=== PATIENT | female | born 1975 | race African-American/Black ===

== ENCOUNTER 2020-12-04 11:00 | Inpatient (IN) ==
[2020-12-04] MEDS ORDERED: Naloxone 0.4 MG/ML INJ IVP PRN (22:28)
[2020-12-04] MEDS ORDERED: *HR* Promethazine 25 MG/ML VIAL IM PRN (22:28)
[2020-12-04] MEDS ORDERED: *HR* LORazepam 2 MG/ML VIAL IVP PRN (22:37)
[2020-12-04] MEDS ORDERED: Azithromycin 500 MG in 0.9 % Sodium Chloride 250 ML IVPB SCH (23:00)
[2020-12-04] MEDS: Cholestyramine 4 GM POWD.PACK PO SCH (23:28)
[2020-12-04] MEDS: QUEtiapine Fumarate 100 MG TABLET PO SCH (23:35)
[2020-12-04] MEDS: *HR* HYDROcodone/Acet 5/325 mg TABLET PO PRN (23:35)
[2020-12-04] MEDS: Melatonin 3 MG TABLET PO PRN (23:35)
[2020-12-04] MEDS: Vancomycin Oral Soln 125 MG/2.5 ML UDC PO SCH (23:36)
[2020-12-05 00:26] LABS: Eosinophils # 1.1 K/mcL (0.0-0.6); Hematocrit 25.3 % (35.3-44.9); Hemoglobin 7.8 g/dL (11.5-15.4); Mean Corpuscular HGB Conc 30.8 g/dL (31.6-35.5); Mean Corpuscular Hemoglobin 27.9 pg (28.0-33.3); Mean Corpuscular Volume 90.4 fL (83.0-100.0); Mean Platelet Volume 7.8 fL (9.4-12.4); Nucleated Red Blood Cells 0.4 /100 WBC (0); Platelet Count 511 K/mcL (140-400); Red Cell Distribution Width 16.3 % (11.5-14.5); White Blood Count 8.9 K/mcL (4.3-11.1)
[2020-12-05 00:49] LABS: Alanine Aminotransferase 5 Units/L (7-52); Albumin 2.4 g/dL (3.5-5.7); Albumin/Globulin Ratio 0.7 (1.1-2.2); Alkaline Phosphatase 58 Units/L (34-104); Anisocytosis 2+ (Not Present); Aspartate Amino Transferase 6 Units/L (13-39); BUN/Creatinine Ratio 11 (6-26); Bilirubin,Total 0.6 mg/dL (0.3-1.0); Blood Urea Nitrogen 5 mg/dL (6-20); Calcium 7.5 mg/dL (8.6-10.3); Carbon Dioxide 23 mEq/L (23-29); Chloride 103 mEq/L (98-107); Globulin 3.3 g/dL (2.4-3.5); Glucose 179 mg/dL (70-105); Hypochromasia Present (Not Present); Iron 10 mcg/dL (50-170); Lymphocytes # 2.1 K/mcL (0.6-4.6); Magnesium 1.4 mg/dL (1.6-2.6); Monocytes # 0.5 K/mcL (0.0-1.3); Neutrophils # 4.8 K/mcL (1.6-8.9); Osmolality,Calculated 278 (280-300); Phosphorous 1.8 mg/dL (2.7-4.5); Polychromasia 1+ (Not Present); Potassium 3.6 mEq/L (3.5-5.1); Sodium 133 mEq/L (136-145); Total Protein 5.7 g/dL (6.4-8.9); Toxic Granulation Present (Not Present); eGFR For African Americans > 60 (> 60); eGFR For Non-African Americans > 60 (> 60)
[2020-12-05 00:50] LABS: Platelet Estimate Marked Increase (Normal)
[2020-12-05 01:34] LABS: % Iron Saturation 6 % (15-50); Transferrin 129 mg/dL (203-362)
[2020-12-05] MEDS ORDERED: Azithromycin 250 MG TABLET PO ONE (03:52)
[2020-12-05] MEDS: 0.9 % Sodium Chloride 1,000 ML IVC SCH ×2 (04:29→09:26)
[2020-12-05] MEDS: Vancomycin Oral Soln 125 MG/2.5 ML UDC PO SCH ×4 (08:02→20:46)
[2020-12-05] MEDS: Lactobacillus 1 EACH CAP.SPRINK PO SCH ×2 (08:02→20:46)
[2020-12-05] MEDS: Cholestyramine 4 GM POWD.PACK PO SCH ×2 (08:02→16:42)
[2020-12-05] MEDS: *HR* HYDROcodone/Acet 5/325 mg TABLET PO PRN ×2 (08:33→23:25)
[2020-12-05] MEDS: Nicotine 21 MG PATCH.TD24 TD SCH (08:34)
[2020-12-05] MEDS ORDERED: Sodium Ferric Gluconat/Sucrose 250 MG in 0.9 % Sodium Chloride 100 ML IVPB ONE (13:16)
[2020-12-05] MEDS: Acetaminophen 325 MG TABLET PO PRN (18:53)
[2020-12-05] MEDS: QUEtiapine Fumarate 100 MG TABLET PO SCH (20:46)
[2020-12-06] MEDS: Ibuprofen 400 MG TABLET PO PRN ×2 (04:41→23:36)
[2020-12-06 07:40] LABS: Hematocrit 23.4 % (35.3-44.9); Hemoglobin 7.2 g/dL (11.5-15.4); Mean Corpuscular HGB Conc 30.8 g/dL (31.6-35.5); Mean Corpuscular Hemoglobin 27.9 pg (28.0-33.3); Mean Corpuscular Volume 90.7 fL (83.0-100.0); Mean Platelet Volume 8.1 fL (9.4-12.4); Nucleated Red Blood Cells 0.2 /100 WBC (0); Platelet Count 544 K/mcL (140-400); Red Blood Count 2.58 M/mcL (3.82-4.97); Red Cell Distribution Width 16.5 % (11.5-14.5); White Blood Count 10.3 K/mcL (4.3-11.1)
[2020-12-06 07:52] LABS: BUN/Creatinine Ratio 16 (6-26); Blood Urea Nitrogen 7 mg/dL (6-20); Calcium 7.6 mg/dL (8.6-10.3); Carbon Dioxide 26 mEq/L (23-29); Chloride 102 mEq/L (98-107); Glucose 101 mg/dL (70-105); Osmolality,Calculated 276 (280-300); Potassium 3.7 mEq/L (3.5-5.1); Sodium 134 mEq/L (136-145); eGFR For African Americans > 60 (> 60); eGFR For Non-African Americans > 60 (> 60)
[2020-12-06 08:22] LABS: Eosinophils # 0.8 K/mcL (0.0-0.6); Lymphocytes # 1.3 K/mcL (0.6-4.6); Monocytes # 2.1 K/mcL (0.0-1.3); Neutrophils # 5.7 K/mcL (1.6-8.9); Platelet Estimate Increased (Normal)
[2020-12-06 08:23] LABS: Large Platelets Present (Not Present)
[2020-12-06] MEDS ORDERED: Sodium Ferric Gluconat/Sucrose 250 MG in 0.9 % Sodium Chloride 100 ML IVPB ONE (09:00)
[2020-12-06] MEDS: Lactobacillus 1 EACH CAP.SPRINK PO SCH ×2 (10:38→21:20)
[2020-12-06] MEDS: Cholestyramine 4 GM POWD.PACK PO SCH ×2 (10:38→18:01)
[2020-12-06] MEDS: Vancomycin Oral Soln 125 MG/2.5 ML UDC PO SCH ×4 (10:38→21:20)
[2020-12-06] MEDS: Nicotine 21 MG PATCH.TD24 TD SCH (10:39)
[2020-12-06] MEDS: *HR* HYDROcodone/Acet 5/325 mg TABLET PO PRN ×2 (10:55→18:09)
[2020-12-06 13:02] LABS: Adenovirus F 40/41 PCR Not detected (Not detect); Astrovirus PCR Not detected (Not detect); C.difficile Toxin A/B Gene PCR Not detected (Not detect); Campylobacter by PCR Not detected (Not detect); Cryptosporidium by PCR Not detected (Not detect); Cyclospora cayetanensis PCR Not detected (Not detect); E. coli O157 by PCR Not detected (Not detect); Entamoeba histolytica PCR Not detected (Not detect); Enteroaggregative E.coli(EAEC) Not detected (Not detect); Enteropathogenic E.coli(EPEC) Not detected (Not detect); Enterotoxigenic E.coli (ETEC) Not detected (Not detect); Giardia lamblia PCR Not detected (Not detect); Norovirus GI/GII PCR Not detected (Not detect); Plesiomonas shigelloides PCR Not detected (Not detect); Rotavirus A PCR Not detected (Not detect); Salmonella PCR Not detected (Not detect); Sapovirus PCR Not detected (Not detect); Shig/EnteroinvasiveE coli EIEC Not detected (Not detect); Shigalike tox-prod E coli STEC Not detected (Not detect); Vibrio PCR Not detected (Not detect); Vibrio cholerae PCR Not detected (Not detect); Yersinia enterocolitica PCR Not detected (Not detect)
[2020-12-06] MEDS: Acetaminophen 325 MG TABLET PO PRN (15:02)
[2020-12-06] MEDS: 0.9 % Sodium Chloride 1,000 ML IVC SCH ×2 (15:02→23:38)
[2020-12-06] MEDS: QUEtiapine Fumarate 100 MG TABLET PO SCH (21:20)
[2020-12-07 04:22] LABS: Hematocrit 22.7 % (35.3-44.9); Hemoglobin 6.9 g/dL (11.5-15.4); Mean Corpuscular HGB Conc 30.4 g/dL (31.6-35.5); Mean Corpuscular Hemoglobin 27.5 pg (28.0-33.3); Mean Corpuscular Volume 90.4 fL (83.0-100.0); Mean Platelet Volume 8.1 fL (9.4-12.4); Nucleated Red Blood Cells 0.4 /100 WBC (0); Platelet Count 546 K/mcL (140-400); Red Blood Count 2.51 M/mcL (3.82-4.97); Red Cell Distribution Width 16.2 % (11.5-14.5)
[2020-12-07 04:42] LABS: BUN/Creatinine Ratio 14 (6-26); Blood Urea Nitrogen 6 mg/dL (6-20); Calcium 7.2 mg/dL (8.6-10.3); Carbon Dioxide 25 mEq/L (23-29); Chloride 105 mEq/L (98-107); Glucose 119 mg/dL (70-105); Osmolality,Calculated 279 (280-300); Potassium 3.4 mEq/L (3.5-5.1); Sodium 135 mEq/L (136-145); eGFR For African Americans > 60 (> 60); eGFR For Non-African Americans > 60 (> 60)
[2020-12-07 05:17] LABS: Anisocytosis 1+ (Not Present); Eosinophils # 2.6 K/mcL (0.0-0.6); Hypochromasia Present (Not Present); Lymphocytes # 2.6 K/mcL (0.6-4.6); Monocytes # 2.1 K/mcL (0.0-1.3); Neutrophils # 5.5 K/mcL (1.6-8.9); Platelet Estimate Marked Increase (Normal); Polychromasia 1+ (Not Present)
[2020-12-07] MEDS ORDERED: Isovue-370 500 ML BOTTLE IVP ONE (08:24)
[2020-12-07] MEDS: Lactobacillus 1 EACH CAP.SPRINK PO SCH ×2 (08:45→20:16)
[2020-12-07] MEDS: Cholestyramine 4 GM POWD.PACK PO SCH ×2 (08:46→16:35)
[2020-12-07] MEDS: 0.9 % Sodium Chloride 1,000 ML IVC SCH (08:46)
[2020-12-07] MEDS: Vancomycin Oral Soln 125 MG/2.5 ML UDC PO SCH ×4 (08:48→20:16)
[2020-12-07] MEDS: Nicotine 21 MG PATCH.TD24 TD SCH (09:49)
[2020-12-07] MEDS: *HR* HYDROcodone/Acet 5/325 mg TABLET PO PRN ×2 (09:58→20:28)
[2020-12-07] MEDS ORDERED: 0.9 % Sodium Chloride 250 ML IVC SCH (14:00)
[2020-12-07] MEDS ORDERED: Tigecycline 100 MG in 0.9 % Sodium Chloride 100 ML IVPB ONE (16:25)
[2020-12-07] MEDS: Acetaminophen 325 MG TABLET PO PRN (16:26)
[2020-12-07] MEDS: Ondansetron 4 MG/2 ML VIAL IVP PRN (18:54)
[2020-12-07] MEDS: QUEtiapine Fumarate 100 MG TABLET PO SCH (20:16)
[2020-12-07] MEDS: MetroNIDAZOLE 500 MG/100 ML 500 MG/100 ML BAG IVPB SCH (22:00)
[2020-12-07] MEDS ORDERED: SODIUM CHLORIDE/NAHCO3/KCL/PEG 4,000 ML SOLN.RECON PO ONE ×2 (22:14→22:30)
[2020-12-07 23:02] LABS: Amylase < 10 Units/L (29-103); Lipase < 3 Units/L (11-82)
[2020-12-08] MEDS ORDERED: MetroNIDAZOLE 500 MG/100 ML 500 MG/100 ML BAG IVPB SCH
[2020-12-08] MEDS: 0.9 % Sodium Chloride 1,000 ML IVC SCH ×3 (03:29→17:48)
[2020-12-08] MEDS: MetroNIDAZOLE 500 MG/100 ML 500 MG/100 ML BAG IVPB SCH ×3 (05:18→20:48)
[2020-12-08] MEDS: Tigecycline 50 MG in 0.9 % Sodium Chloride Mini Bag 100 ML IVPB SCH ×2 (05:19→17:46)
[2020-12-08] MEDS: *HR* HYDROcodone/Acet 5/325 mg TABLET PO PRN ×2 (05:36→13:05)
[2020-12-08 05:56] LABS: Mean Corpuscular HGB Conc 30.8 g/dL (31.6-35.5); Mean Corpuscular Hemoglobin 27.6 pg (28.0-33.3); Mean Corpuscular Volume 89.7 fL (83.0-100.0); Mean Platelet Volume 8.1 fL (9.4-12.4); Nucleated Red Blood Cells 0.6 /100 WBC (0); Platelet Count 603 K/mcL (140-400); Red Cell Distribution Width 15.7 % (11.5-14.5); White Blood Count 9.9 K/mcL (4.3-11.1)
[2020-12-08 06:14] LABS: BUN/Creatinine Ratio 11 (6-26); Blood Urea Nitrogen 5 mg/dL (6-20); Calcium 7.3 mg/dL (8.6-10.3); Carbon Dioxide 26 mEq/L (23-29); Chloride 104 mEq/L (98-107); Glucose 110 mg/dL (70-105); Osmolality,Calculated 278 (280-300); Potassium 3.5 mEq/L (3.5-5.1); Sodium 135 mEq/L (136-145); eGFR For African Americans > 60 (> 60); eGFR For Non-African Americans > 60 (> 60)
[2020-12-08 06:39] LABS: Eosinophils # 0.4 K/mcL (0.0-0.6); Large Platelets Present (Not Present); Lymphocytes # 4.3 K/mcL (0.6-4.6); Neutrophils # 2.6 K/mcL (1.6-8.9); Platelet Estimate Increased (Normal)
[2020-12-08 08:26] LABS: C-Reactive Protein > 300 mg/L (Less than 10)
[2020-12-08] MEDS: Nicotine 21 MG PATCH.TD24 TD SCH (09:14)
[2020-12-08] MEDS: Cholestyramine 4 GM POWD.PACK PO SCH ×2 (09:14→17:47)
[2020-12-08] MEDS: Lactobacillus 1 EACH CAP.SPRINK PO SCH ×2 (09:24→20:47)
[2020-12-08] MEDS: Vancomycin Oral Soln 125 MG/2.5 ML UDC PO SCH ×4 (09:24→20:47)
[2020-12-08] MEDS ORDERED: SODIUM CHLORIDE/NAHCO3/KCL/PEG 4,000 ML SOLN.RECON PO ONE (17:00)
[2020-12-08] MEDS: QUEtiapine Fumarate 100 MG TABLET PO SCH (20:47)
[2020-12-09] MEDS: 0.9 % Sodium Chloride 1,000 ML IVC SCH ×3 (01:35→21:35)
[2020-12-09] MEDS: *HR* HYDROcodone/Acet 5/325 mg TABLET PO PRN ×2 (03:36→18:44)
[2020-12-09] MEDS: Ondansetron 4 MG/2 ML VIAL IVP PRN (03:36)
[2020-12-09] MEDS: MetroNIDAZOLE 500 MG/100 ML 500 MG/100 ML BAG IVPB SCH ×3 (05:20→21:37)
[2020-12-09 05:36] LABS: Hematocrit 25.6 % (35.3-44.9); Hemoglobin 7.7 g/dL (11.5-15.4); Mean Corpuscular HGB Conc 30.1 g/dL (31.6-35.5); Mean Corpuscular Hemoglobin 27.5 pg (28.0-33.3); Mean Corpuscular Volume 91.4 fL (83.0-100.0); Mean Platelet Volume 8.1 fL (9.4-12.4); Nucleated Red Blood Cells 0.5 /100 WBC (0); Platelet Count 639 K/mcL (140-400); White Blood Count 9.7 K/mcL (4.3-11.1)
[2020-12-09 05:53] LABS: Eosinophils # 0.8 K/mcL (0.0-0.6); Lymphocytes # 1.8 K/mcL (0.6-4.6); Monocytes # 1.4 K/mcL (0.0-1.3); Neutrophils # 5.8 K/mcL (1.6-8.9)
[2020-12-09 05:54] LABS: Large Platelets Present (Not Present); Platelet Estimate Increased (Normal); Polychromasia 1+ (Not Present)
[2020-12-09] MEDS: Tigecycline 50 MG in 0.9 % Sodium Chloride Mini Bag 100 ML IVPB SCH ×2 (06:07→17:52)
[2020-12-09 07:28] LABS: BUN/Creatinine Ratio 17 (6-26); Blood Urea Nitrogen 6 mg/dL (6-20); Calcium 7.5 mg/dL (8.6-10.3); Carbon Dioxide 23 mEq/L (23-29); Chloride 105 mEq/L (98-107); Glucose 87 mg/dL (70-105); Osmolality,Calculated 275 (280-300); Potassium 3.7 mEq/L (3.5-5.1); Sodium 134 mEq/L (136-145); eGFR For African Americans > 60 (> 60); eGFR For Non-African Americans > 60 (> 60)
[2020-12-09] MEDS: Lactobacillus 1 EACH CAP.SPRINK PO SCH ×2 (08:47→19:36)
[2020-12-09] MEDS: Vancomycin Oral Soln 125 MG/2.5 ML UDC PO SCH ×2 (08:47→13:43)
[2020-12-09] MEDS: Nicotine 21 MG PATCH.TD24 TD SCH (08:50)
[2020-12-09] MEDS: Cholestyramine 4 GM POWD.PACK PO SCH ×2 (08:52→16:00)
[2020-12-09] MEDS: QUEtiapine Fumarate 100 MG TABLET PO SCH (19:36)
[2020-12-10] MEDS: *HR* HYDROcodone/Acet 5/325 mg TABLET PO PRN ×2 (05:19→21:07)
[2020-12-10] MEDS: Tigecycline 50 MG in 0.9 % Sodium Chloride Mini Bag 100 ML IVPB SCH ×2 (05:19→17:30)
[2020-12-10] MEDS: MetroNIDAZOLE 500 MG/100 ML 500 MG/100 ML BAG IVPB SCH ×3 (05:21→21:09)
[2020-12-10] MEDS: Lactobacillus 1 EACH CAP.SPRINK PO SCH ×2 (07:11→21:07)
[2020-12-10] MEDS: Cholestyramine 4 GM POWD.PACK PO SCH ×2 (07:11→15:50)
[2020-12-10] MEDS ORDERED: Lidocaine -MPF 2% 5 ML VIAL ONE (07:12)
[2020-12-10] MEDS: 0.9 % Sodium Chloride 1,000 ML IVC SCH ×2 (07:53→17:30)
[2020-12-10] MEDS: Nicotine 21 MG PATCH.TD24 TD SCH (07:53)
[2020-12-10 07:59] LABS: BUN/Creatinine Ratio 17 (6-26); Blood Urea Nitrogen 5 mg/dL (6-20); Calcium 7.4 mg/dL (8.6-10.3); Carbon Dioxide 25 mEq/L (23-29); Chloride 106 mEq/L (98-107); Glucose 116 mg/dL (70-105); Osmolality,Calculated 282 (280-300); Potassium 3.8 mEq/L (3.5-5.1); Sodium 137 mEq/L (136-145); eGFR For African Americans > 60 (> 60); eGFR For Non-African Americans > 60 (> 60)
[2020-12-10 08:04] LABS: Hematocrit 27.7 % (35.3-44.9); Hemoglobin 8.4 g/dL (11.5-15.4); Mean Corpuscular HGB Conc 30.3 g/dL (31.6-35.5); Mean Corpuscular Hemoglobin 27.4 pg (28.0-33.3); Mean Corpuscular Volume 90.2 fL (83.0-100.0); Mean Platelet Volume 8.7 fL (9.4-12.4); Nucleated Red Blood Cells 0.4 /100 WBC (0); Platelet Count 679 K/mcL (140-400); Red Blood Count 3.07 M/mcL (3.82-4.97); Red Cell Distribution Width 16.3 % (11.5-14.5); White Blood Count 11.3 K/mcL (4.3-11.1)
[2020-12-10] MEDS ORDERED: Simethicone 40 MG/0.6 ML MLS IR ONE (08:04)
[2020-12-10 08:30] LABS: Eosinophils # 0.5 K/mcL (0.0-0.6); Hypochromasia Present (Not Present); Lymphocytes # 0.9 K/mcL (0.6-4.6); Monocytes # 2.3 K/mcL (0.0-1.3); Platelet Estimate Increased (Normal)
[2020-12-10] MEDS: Ondansetron 4 MG/2 ML VIAL IVP PRN (17:30)
[2020-12-10] MEDS: QUEtiapine Fumarate 100 MG TABLET PO SCH (21:07)
[2020-12-11] MEDS: MetroNIDAZOLE 500 MG/100 ML 500 MG/100 ML BAG IVPB SCH ×3 (05:19→22:50)
[2020-12-11] MEDS: Tigecycline 50 MG in 0.9 % Sodium Chloride Mini Bag 100 ML IVPB SCH ×2 (05:20→18:16)
[2020-12-11] MEDS: 0.9 % Sodium Chloride 1,000 ML IVC SCH ×2 (05:21→16:59)
[2020-12-11 06:22] LABS: Hematocrit 27.7 % (35.3-44.9); Hemoglobin 8.5 g/dL (11.5-15.4); Mean Corpuscular HGB Conc 30.7 g/dL (31.6-35.5); Mean Corpuscular Hemoglobin 28.1 pg (28.0-33.3); Mean Corpuscular Volume 91.4 fL (83.0-100.0); Mean Platelet Volume 8.1 fL (9.4-12.4); Nucleated Red Blood Cells 0.4 /100 WBC (0); Platelet Count 725 K/mcL (140-400); Red Blood Count 3.03 M/mcL (3.82-4.97); Red Cell Distribution Width 16.7 % (11.5-14.5); White Blood Count 11.1 K/mcL (4.3-11.1)
[2020-12-11 06:43] LABS: BUN/Creatinine Ratio 13 (6-26); Blood Urea Nitrogen 5 mg/dL (6-20); Calcium 7.3 mg/dL (8.6-10.3); Carbon Dioxide 28 mEq/L (23-29); Chloride 105 mEq/L (98-107); Glucose 93 mg/dL (70-105); Osmolality,Calculated 281 (280-300); Sodium 137 mEq/L (136-145); eGFR For African Americans > 60 (> 60); eGFR For Non-African Americans > 60 (> 60)
[2020-12-11 07:03] LABS: Eosinophils # 0.9 K/mcL (0.0-0.6); Lymphocytes # 2.2 K/mcL (0.6-4.6); Monocytes # 0.4 K/mcL (0.0-1.3); Neutrophils # 7.6 K/mcL (1.6-8.9)
[2020-12-11] MEDS: *HR* HYDROcodone/Acet 5/325 mg TABLET PO PRN ×2 (07:03→19:50)
[2020-12-11 07:04] LABS: Hypochromasia Present (Not Present); Reactive Lymphocytes Present (Not Present); Smudge Cells Present (Not Present)
[2020-12-11 07:05] LABS: Platelet Estimate Marked Increase (Normal)
[2020-12-11] MEDS: Lactobacillus 1 EACH CAP.SPRINK PO SCH ×2 (09:24→20:18)
[2020-12-11] MEDS: Cholestyramine 4 GM POWD.PACK PO SCH ×2 (09:24→17:04)
[2020-12-11] MEDS: Nicotine 21 MG PATCH.TD24 TD SCH (09:24)
[2020-12-11] MEDS ORDERED: Potassium Chloride 40 MEQ, Lidocaine 1% 2 ML in 0.9 % Sodium Chloride 500 ML IVPB ONE (10:08)
[2020-12-11] MEDS: QUEtiapine Fumarate 100 MG TABLET PO SCH (20:18)
[2020-12-12] MEDS: *HR* HYDROcodone/Acet 5/325 mg TABLET PO PRN ×3 (05:18→19:15)
[2020-12-12] MEDS: MetroNIDAZOLE 500 MG/100 ML 500 MG/100 ML BAG IVPB SCH ×3 (05:19→22:52)
[2020-12-12] MEDS: Tigecycline 50 MG in 0.9 % Sodium Chloride Mini Bag 100 ML IVPB SCH ×2 (05:19→19:05)
[2020-12-12] MEDS: Cholestyramine 4 GM POWD.PACK PO SCH ×2 (09:00→16:34)
[2020-12-12] MEDS: Nicotine 21 MG PATCH.TD24 TD SCH (09:00)
[2020-12-12] MEDS: Lactobacillus 1 EACH CAP.SPRINK PO SCH ×2 (09:00→20:13)
[2020-12-12 09:40] LABS: Hematocrit 27.5 % (35.3-44.9); Hemoglobin 8.2 g/dL (11.5-15.4); Mean Corpuscular HGB Conc 29.8 g/dL (31.6-35.5); Mean Corpuscular Hemoglobin 27.6 pg (28.0-33.3); Mean Corpuscular Volume 92.6 fL (83.0-100.0); Mean Platelet Volume 7.9 fL (9.4-12.4); Nucleated Red Blood Cells 0.3 /100 WBC (0); Platelet Count 631 K/mcL (140-400); Red Blood Count 2.97 M/mcL (3.82-4.97); Red Cell Distribution Width 16.9 % (11.5-14.5); White Blood Count 10.3 K/mcL (4.3-11.1)
[2020-12-12 09:57] LABS: BUN/Creatinine Ratio 10 (6-26); Blood Urea Nitrogen 3 mg/dL (6-20); Calcium 7.1 mg/dL (8.6-10.3); Carbon Dioxide 25 mEq/L (23-29); Chloride 106 mEq/L (98-107); Glucose 111 mg/dL (70-105); Osmolality,Calculated 277 (280-300); Potassium 3.3 mEq/L (3.5-5.1); Sodium 135 mEq/L (136-145); eGFR For African Americans > 60 (> 60); eGFR For Non-African Americans > 60 (> 60)
[2020-12-12 10:09] LABS: Eosinophils # 1.3 K/mcL (0.0-0.6); Lymphocytes # 1.9 K/mcL (0.6-4.6); Monocytes # 0.7 K/mcL (0.0-1.3); Platelet Estimate Increased (Normal)
[2020-12-12 10:10] LABS: Anisocytosis 1+ (Not Present); Polychromasia 1+ (Not Present)
[2020-12-12 11:20] LABS: Immature Reticulocyte % 37.8 % (11.0-38.0); Retculocyte # 0.14 M/mcL (0.05-0.10); Reticulocyte % 4.6 % (1.6-2.8)
[2020-12-12] MEDS ORDERED: Potassium Chloride 40 MEQ, Lidocaine 1% 2 ML in 0.9 % Sodium Chloride 500 ML IVPB ONE (11:31)
[2020-12-12 11:37] LABS: Iron 13 mcg/dL (50-170); Transferrin < 75 mg/dL (203-362)
[2020-12-12 15:08] LABS: Folate 13.8 ng/mL (3.0-16.0)
[2020-12-12] MEDS: QUEtiapine Fumarate 100 MG TABLET PO SCH (20:13)
[2020-12-13] MEDS: *HR* HYDROcodone/Acet 5/325 mg TABLET PO PRN ×2 (01:20→17:27)
[2020-12-13] MEDS: Tigecycline 50 MG in 0.9 % Sodium Chloride Mini Bag 100 ML IVPB SCH ×2 (05:05→17:23)
[2020-12-13] MEDS: MetroNIDAZOLE 500 MG/100 ML 500 MG/100 ML BAG IVPB SCH ×3 (05:06→21:17)
[2020-12-13 06:02] LABS: Hematocrit 25.4 % (35.3-44.9); Hemoglobin 7.8 g/dL (11.5-15.4); Mean Corpuscular HGB Conc 30.7 g/dL (31.6-35.5); Mean Corpuscular Hemoglobin 28.3 pg (28.0-33.3); Mean Platelet Volume 8.1 fL (9.4-12.4); Nucleated Red Blood Cells 0.3 /100 WBC (0); Platelet Count 667 K/mcL (140-400); Red Blood Count 2.76 M/mcL (3.82-4.97); Red Cell Distribution Width 17.2 % (11.5-14.5); White Blood Count 9.9 K/mcL (4.3-11.1)
[2020-12-13 06:14] LABS: BUN/Creatinine Ratio 11 (6-26); Blood Urea Nitrogen 3 mg/dL (6-20); Calcium 7.2 mg/dL (8.6-10.3); Carbon Dioxide 26 mEq/L (23-29); Chloride 108 mEq/L (98-107); Glucose 94 mg/dL (70-105); Osmolality,Calculated 280 (280-300); Potassium 3.5 mEq/L (3.5-5.1); Sodium 137 mEq/L (136-145); eGFR For African Americans > 60 (> 60); eGFR For Non-African Americans > 60 (> 60)
[2020-12-13 06:37] LABS: Lymphocytes # 1.4 K/mcL (0.6-4.6); Monocytes # 0.8 K/mcL (0.0-1.3); Neutrophils # 6.5 K/mcL (1.6-8.9)
[2020-12-13 06:38] LABS: Anisocytosis 1+ (Not Present); Hypochromasia Present (Not Present); Platelet Estimate Marked Increase (Normal); Polychromasia 1+ (Not Present)
[2020-12-13] MEDS: Cholestyramine 4 GM POWD.PACK PO SCH ×2 (07:54→13:34)
[2020-12-13] MEDS: Nicotine 21 MG PATCH.TD24 TD SCH (07:58)
[2020-12-13] MEDS: Lactobacillus 1 EACH CAP.SPRINK PO SCH ×2 (07:59→21:17)
[2020-12-13] MEDS: methylPREDNISolone 125 MG/2 ML VIAL IVP SCH (14:33)
[2020-12-13] MEDS: QUEtiapine Fumarate 100 MG TABLET PO SCH (21:17)
[2020-12-14] MEDS: Tigecycline 50 MG in 0.9 % Sodium Chloride Mini Bag 100 ML IVPB SCH ×3 (05:01→18:35)
[2020-12-14] MEDS: MetroNIDAZOLE 500 MG/100 ML 500 MG/100 ML BAG IVPB SCH ×3 (05:01→18:35)
[2020-12-14 05:07] LABS: Hematocrit 28.1 % (35.3-44.9); Hemoglobin 8.4 g/dL (11.5-15.4); Mean Corpuscular HGB Conc 29.9 g/dL (31.6-35.5); Mean Corpuscular Hemoglobin 27.7 pg (28.0-33.3); Mean Corpuscular Volume 92.7 fL (83.0-100.0); Mean Platelet Volume 8.2 fL (9.4-12.4); Platelet Count 689 K/mcL (140-400); Red Blood Count 3.03 M/mcL (3.82-4.97); Red Cell Distribution Width 17.2 % (11.5-14.5); White Blood Count 8.8 K/mcL (4.3-11.1)
[2020-12-14 05:18] LABS: BUN/Creatinine Ratio 16 (6-26); Blood Urea Nitrogen 5 mg/dL (6-20); Calcium 7.5 mg/dL (8.6-10.3); Carbon Dioxide 23 mEq/L (23-29); Chloride 108 mEq/L (98-107); Glucose 192 mg/dL (70-105); Osmolality,Calculated 284 (280-300); Sodium 136 mEq/L (136-145); eGFR For African Americans > 60 (> 60); eGFR For Non-African Americans > 60 (> 60)
[2020-12-14 05:36] LABS: Ferritin 381 ng/mL (10-120)
[2020-12-14 06:44] LABS: Lymphocytes # 1.2 K/mcL (0.6-4.6); Monocytes # 0.2 K/mcL (0.0-1.3); Neutrophils # 7.2 K/mcL (1.6-8.9)
[2020-12-14 06:45] LABS: Platelet Estimate Increased (Normal); Polychromasia 1+ (Not Present); Toxic Granulation Present (Not Present)
[2020-12-14 06:46] LABS: Anisocytosis 1+ (Not Present)
[2020-12-14] MEDS: Cholestyramine 4 GM POWD.PACK PO SCH ×2 (07:21→17:18)
[2020-12-14] MEDS: methylPREDNISolone 125 MG/2 ML VIAL IVP SCH (08:52)
[2020-12-14] MEDS: Nicotine 21 MG PATCH.TD24 TD SCH (08:52)
[2020-12-14] MEDS: Lactobacillus 1 EACH CAP.SPRINK PO SCH ×2 (08:52→19:44)
[2020-12-14] MEDS: *HR* HYDROcodone/Acet 5/325 mg TABLET PO PRN (17:22)
[2020-12-14] MEDS: QUEtiapine Fumarate 100 MG TABLET PO SCH (19:44)
[2020-12-15] MEDS: MetroNIDAZOLE 500 MG/100 ML 500 MG/100 ML BAG IVPB SCH ×3 (03:01→17:20)
[2020-12-15] MEDS: Tigecycline 50 MG in 0.9 % Sodium Chloride Mini Bag 100 ML IVPB SCH ×2 (05:31→17:20)
[2020-12-15 07:07] LABS: Hematocrit 26.8 % (35.3-44.9); Hemoglobin 8.2 g/dL (11.5-15.4); Mean Corpuscular HGB Conc 30.6 g/dL (31.6-35.5); Mean Corpuscular Hemoglobin 28.2 pg (28.0-33.3); Mean Corpuscular Volume 92.1 fL (83.0-100.0); Mean Platelet Volume 7.9 fL (9.4-12.4); Nucleated Red Blood Cells 0.5 /100 WBC (0); Platelet Count 720 K/mcL (140-400); Red Blood Count 2.91 M/mcL (3.82-4.97); Red Cell Distribution Width 17.8 % (11.5-14.5); White Blood Count 9.8 K/mcL (4.3-11.1)
[2020-12-15 07:24] LABS: BUN/Creatinine Ratio 12 (6-26); Blood Urea Nitrogen 5 mg/dL (6-20); Calcium 7.4 mg/dL (8.6-10.3); Carbon Dioxide 27 mEq/L (23-29); Chloride 107 mEq/L (98-107); Glucose 88 mg/dL (70-105); Osmolality,Calculated 281 (280-300); Potassium 3.8 mEq/L (3.5-5.1); Sodium 137 mEq/L (136-145); eGFR For African Americans > 60 (> 60); eGFR For Non-African Americans > 60 (> 60)
[2020-12-15 07:45] LABS: Eosinophils # 0.8 K/mcL (0.0-0.6); Lymphocytes # 1.4 K/mcL (0.6-4.6); Monocytes # 0.8 K/mcL (0.0-1.3); Neutrophils # 6.7 K/mcL (1.6-8.9); Platelet Estimate Increased (Normal)
[2020-12-15] MEDS: Cholestyramine 4 GM POWD.PACK PO SCH ×2 (08:45→17:06)
[2020-12-15] MEDS: Nicotine 21 MG PATCH.TD24 TD SCH (08:47)
[2020-12-15] MEDS: Lactobacillus 1 EACH CAP.SPRINK PO SCH ×2 (08:47→22:29)
[2020-12-15] MEDS: methylPREDNISolone 125 MG/2 ML VIAL IVP SCH (09:20)
[2020-12-15] MEDS: Calcium Gluconate 1gm/50mL 1 GM/50 ML BAG IVPB SCH ×2 (10:32→12:05)
[2020-12-15] MEDS: Ondansetron 4 MG/2 ML VIAL IVP PRN (22:28)
[2020-12-15] MEDS: QUEtiapine Fumarate 100 MG TABLET PO SCH (22:29)
[2020-12-15] MEDS: Melatonin 3 MG TABLET PO PRN (22:29)
[2020-12-16 03:00] LABS: Hematocrit 25.7 % (35.3-44.9); Hemoglobin 7.9 g/dL (11.5-15.4); Mean Corpuscular HGB Conc 30.7 g/dL (31.6-35.5); Mean Corpuscular Hemoglobin 28.2 pg (28.0-33.3); Mean Corpuscular Volume 91.8 fL (83.0-100.0); Platelet Count 707 K/mcL (140-400); Red Cell Distribution Width 17.4 % (11.5-14.5); White Blood Count 10.4 K/mcL (4.3-11.1)
[2020-12-16 03:20] LABS: BUN/Creatinine Ratio 15 (6-26); Blood Urea Nitrogen 6 mg/dL (6-20); Calcium 7.9 mg/dL (8.6-10.3); Carbon Dioxide 27 mEq/L (23-29); Chloride 106 mEq/L (98-107); Glucose 168 mg/dL (70-105); Magnesium 1.7 mg/dL (1.6-2.6); Osmolality,Calculated 285 (280-300); Phosphorous 2.9 mg/dL (2.7-4.5); Potassium 3.9 mEq/L (3.5-5.1); Sodium 137 mEq/L (136-145); eGFR For African Americans > 60 (> 60); eGFR For Non-African Americans > 60 (> 60)
[2020-12-16] MEDS: MetroNIDAZOLE 500 MG/100 ML 500 MG/100 ML BAG IVPB SCH ×3 (08:17→18:38)
[2020-12-16] MEDS ORDERED: Iron Sucrose Complex 400 MG in 0.9 % Sodium Chloride 250 ML IVPB ONE (08:18)
[2020-12-16] MEDS: Tigecycline 50 MG in 0.9 % Sodium Chloride Mini Bag 100 ML IVPB SCH ×2 (08:19→18:37)
[2020-12-16] MEDS: methylPREDNISolone 125 MG/2 ML VIAL IVP SCH (09:26)
[2020-12-16] MEDS: *HR* HYDROcodone/Acet 5/325 mg TABLET PO PRN ×2 (09:27→20:59)
[2020-12-16] MEDS: Multivit/Ca/Min/Fe/FA 1 TAB TABLET PO SCH (09:27)
[2020-12-16] MEDS: Lactobacillus 1 EACH CAP.SPRINK PO SCH ×2 (09:27→20:57)
[2020-12-16] MEDS: Cholestyramine 4 GM POWD.PACK PO SCH ×2 (09:29→15:32)
[2020-12-16] MEDS: Nicotine 21 MG PATCH.TD24 TD SCH (09:29)
[2020-12-16] MEDS: Calcium Gluconate 1gm/50mL 1 GM/50 ML BAG IVPB SCH ×2 (09:30→12:09)
[2020-12-16] MEDS: QUEtiapine Fumarate 100 MG TABLET PO SCH (20:57)
[2020-12-16] MEDS: Melatonin 3 MG TABLET PO PRN (21:00)
[2020-12-17] MEDS: MetroNIDAZOLE 500 MG/100 ML 500 MG/100 ML BAG IVPB SCH ×2 (02:02→09:44)
[2020-12-17] MEDS: Tigecycline 50 MG in 0.9 % Sodium Chloride Mini Bag 100 ML IVPB SCH (05:52)
[2020-12-17 06:10] LABS: Hematocrit 26.7 % (35.3-44.9); Hemoglobin 7.8 g/dL (11.5-15.4); Mean Corpuscular HGB Conc 29.2 g/dL (31.6-35.5); Mean Corpuscular Volume 95.7 fL (83.0-100.0); Platelet Count 747 K/mcL (140-400); Red Blood Count 2.79 M/mcL (3.82-4.97); Red Cell Distribution Width 18.2 % (11.5-14.5)
[2020-12-17 06:12] LABS: White Blood Count 16.2 K/mcL (4.3-11.1)
[2020-12-17 06:32] LABS: BUN/Creatinine Ratio 26 (6-26); Blood Urea Nitrogen 9 mg/dL (6-20); Calcium 7.6 mg/dL (8.6-10.3); Carbon Dioxide 27 mEq/L (23-29); Chloride 107 mEq/L (98-107); Glucose 126 mg/dL (70-105); Magnesium 1.9 mg/dL (1.6-2.6); Osmolality,Calculated 286 (280-300); Phosphorous 2.3 mg/dL (2.7-4.5); Potassium 3.8 mEq/L (3.5-5.1); Sodium 138 mEq/L (136-145); eGFR For African Americans > 60 (> 60); eGFR For Non-African Americans > 60 (> 60)
[2020-12-17 07:33] VITALS: TEMP 97.7
[2020-12-17] MEDS: Cholestyramine 4 GM POWD.PACK PO SCH (09:44)
[2020-12-17] MEDS: Multivit/Ca/Min/Fe/FA 1 TAB TABLET PO SCH (09:45)
[2020-12-17] MEDS: methylPREDNISolone 125 MG/2 ML VIAL IVP SCH (09:45)
[2020-12-17] MEDS: Nicotine 21 MG PATCH.TD24 TD SCH (09:46)
[2020-12-17] MEDS: Lactobacillus 1 EACH CAP.SPRINK PO SCH (09:46)
[2020-12-17] MEDS: Calcium Gluconate 1gm/50mL 1 GM/50 ML BAG IVPB SCH ×2 (11:27→12:22)
[2020-12-17 11:31] VITALS: BP 102/67; PULSE 97; O2SAT 99
== END 2020-12-17 16:20 | disposition home health service (06) | DRG 720 ==
LOC: 3ANU → SUATTDRO 19:19 → 3BNU 12-15 22:55
PROVIDERS: ADMIT Internal Medicine; ATTEND Internal Medicine
PROC: ENDOEBX (2020-12-10 11:35)
PROC: ENDOCBX (2020-12-10 11:35)

== ENCOUNTER 2020-12-19 17:18 | Inpatient (IN) ==
[2020-12-19 18:53] LABS: Bilirubin,Urine Negative (Negative); Blood,Urine Negative (Negative); Clarity,Urine Clear (Clear); Color,Urine Light-Yellow (Yellow); Glucose,Urine (UA) Normal (Normal); Ketones,Urine Negative (Negative); Leukocyte Esterase,Urine Negative (Negative); Nitrite,Urine Negative (Negative); Protein,Urine Negative (Neg-Trace); Specific Gravity,Urine 1.019 (1.010-1.025); Urobilinogen,Urine Normal (Normal)
[2020-12-19 19:03] LABS: Hematocrit 31.4 % (35.3-44.9); Mean Corpuscular HGB Conc 30.6 g/dL (31.6-35.5); Mean Corpuscular Volume 94.9 fL (83.0-100.0); Mean Platelet Volume 8.2 fL (9.4-12.4); Platelet Count 830 K/mcL (140-400); Red Blood Count 3.31 M/mcL (3.82-4.97); Red Cell Distribution Width 19.9 % (11.5-14.5); White Blood Count 11.4 K/mcL (4.3-11.1)
[2020-12-19 19:05] LABS: Hemoglobin 9.6 g/dL (11.5-15.4)
[2020-12-19 19:12] LABS: Amphetamine Screen,Urine Negative ng/mL (Cutoff=1000); Barbiturate Screen,Urine Negative ng/mL (Cutoff=200); Benzodiazepines Screen,Urine Negative ng/mL (Cutoff=200); Cannabinoid Screen,Urine Negative ng/mL (Cutoff = 50); Cocaine Screen,Urine Negative ng/mL (Cutoff= 300); Opiate Screen,Urine Negative ng/mL (Cutoff=300); Phencyclidine Screen,Urine Negative ng/mL (Cutoff=25)
[2020-12-19 19:25] LABS: Acetaminophen < 10 mcg/mL (10-20); Alanine Aminotransferase 11 Units/L (7-52); Albumin/Globulin Ratio 0.9 (1.1-2.2); Alkaline Phosphatase 95 Units/L (34-104); Aspartate Amino Transferase 14 Units/L (13-39); BUN/Creatinine Ratio 15 (6-26); Bilirubin,Indirect 0.2 mg/dL (0.0-1.0); Bilirubin,Total 0.2 mg/dL (0.3-1.0); Blood Urea Nitrogen 8 mg/dL (6-20); Calcium 8.5 mg/dL (8.6-10.3); Carbon Dioxide 21 mEq/L (23-29); Chloride 106 mEq/L (98-107); Ethanol < 10 mg/dL (Less than 10); Globulin 3.5 g/dL (2.4-3.5); Glucose 91 mg/dL (70-105); Osmolality,Calculated 286 (280-300); Potassium 3.7 mEq/L (3.5-5.1); Sodium 139 mEq/L (136-145); Total Protein 6.5 g/dL (6.4-8.9); Troponin I < 0.03 ng/mL (< 0.04); eGFR For African Americans > 60 (> 60); eGFR For Non-African Americans > 60 (> 60)
[2020-12-19 19:28] LABS: Anisocytosis 1+ (Not Present); Hypochromasia Present (Not Present); Lymphocytes # 2.3 K/mcL (0.6-4.6); Monocytes # 0.5 K/mcL (0.0-1.3); Neutrophils # 8.2 K/mcL (1.6-8.9); Platelet Estimate Increased (Normal); Target Cells 1+ (Not Present)
[2020-12-19] MEDS ORDERED: Isovue-370 500 ML BOTTLE IVP ONE (20:22)
[2020-12-19] MEDS ORDERED: 0.9 % Sodium Chloride 1,000 ML IVC ONE (20:22)
[2020-12-20] MEDS ORDERED: Naloxone 0.4 MG/ML INJ IVP PRN (00:54)
[2020-12-20] MEDS: Ondansetron 4 MG/2 ML VIAL IVP PRN (01:49)
[2020-12-20] MEDS: Acetaminophen 325 MG TABLET PO PRN ×2 (01:50→19:52)
[2020-12-20] MEDS: Melatonin 3 MG TABLET PO PRN ×2 (01:51→22:53)
[2020-12-20] MEDS: *HR* Heparin 5,000 UNIT/ML VIAL SQ SCH ×2 (06:19→16:41)
[2020-12-20] MEDS ORDERED: Regadenoson 0.4 MG/5 ML SYRINGE IVP ONE ×2 (06:33→10:14)
[2020-12-20 13:48] LABS: Alanine Aminotransferase 9 Units/L (7-52); Albumin 2.9 g/dL (3.5-5.7); Albumin/Globulin Ratio 0.9 (1.1-2.2); Alkaline Phosphatase 72 Units/L (34-104); Aspartate Amino Transferase 19 Units/L (13-39); BUN/Creatinine Ratio 11 (6-26); Bilirubin,Total 0.3 mg/dL (0.3-1.0); Blood Urea Nitrogen 5 mg/dL (6-20); Calcium 8.2 mg/dL (8.6-10.3); Carbon Dioxide 23 mEq/L (23-29); Chloride 106 mEq/L (98-107); Globulin 3.2 g/dL (2.4-3.5); Glucose 92 mg/dL (70-105); Osmolality,Calculated 283 (280-300); Phosphorous 4.3 mg/dL (2.7-4.5); Potassium 3.6 mEq/L (3.5-5.1); Sodium 138 mEq/L (136-145); Total Protein 6.1 g/dL (6.4-8.9); Troponin I < 0.03 ng/mL (< 0.04); eGFR For African Americans > 60 (> 60); eGFR For Non-African Americans > 60 (> 60)
[2020-12-20 13:55] LABS: Mean Platelet Volume 7.9 fL (9.4-12.4); Nucleated Red Blood Cells 0.4 /100 WBC (0); Red Cell Distribution Width 20.9 % (11.5-14.5)
[2020-12-20 13:56] LABS: Hematocrit 30.3 % (35.3-44.9); Hemoglobin 9.1 g/dL (11.5-15.4); Mean Corpuscular Hemoglobin 29.4 pg (28.0-33.3); Mean Corpuscular Volume 97.7 fL (83.0-100.0); Monocytes # 0.8 K/mcL (0.0-1.3); Platelet Count 797 K/mcL (140-400); White Blood Count 9.6 K/mcL (4.3-11.1)
[2020-12-20 15:33] LABS: Basophils # 0.2 K/mcL (0.0-0.2); Eosinophils # 0.2 K/mcL (0.0-0.6); Lymphocytes # 3.1 K/mcL (0.6-4.6); Neutrophils # 5.4 K/mcL (1.6-8.9); Platelet Estimate Increased (Normal)
[2020-12-20 15:34] LABS: Anisocytosis 1+ (Not Present); Hypochromasia Present (Not Present)
[2020-12-20] MEDS: Cholestyramine 4 GM POWD.PACK PO SCH (16:43)
[2020-12-20] MEDS: QUEtiapine Fumarate 100 MG TABLET PO SCH (22:53)
[2020-12-20] MEDS: Lactobacillus 1 EACH CAP.SPRINK PO SCH (22:53)
[2020-12-21 04:50] LABS: Basophils # 0.1 K/mcL (0.0-0.2); Basophils % 0.8 %; Eosinophils # 0.4 K/mcL (0.0-0.6); Eosinophils % 4.5 %; Hematocrit 26.8 % (35.3-44.9); Hemoglobin 8.4 g/dL (11.5-15.4); Immature Granulocytes % 3.8 % (0-4); Lymphocytes # 2.1 K/mcL (0.6-4.6); Lymphocytes % 24.7 %; Mean Corpuscular HGB Conc 31.3 g/dL (31.6-35.5); Mean Corpuscular Hemoglobin 29.9 pg (28.0-33.3); Mean Corpuscular Volume 95.4 fL (83.0-100.0); Monocytes # 0.8 K/mcL (0.0-1.3); Monocytes % 9.2 %; Neutrophils # 4.8 K/mcL (1.6-8.9); Nucleated Red Blood Cells 0.2 /100 WBC (0); Platelet Count 588 K/mcL (140-400); Red Blood Count 2.81 M/mcL (3.82-4.97); Red Cell Distribution Width 20.1 % (11.5-14.5); White Blood Count 8.4 K/mcL (4.3-11.1)
[2020-12-21 05:24] LABS: Anisocytosis 1+ (Not Present); Hypochromasia Present (Not Present); Platelet Estimate Marked Increase (Normal); Polychromasia 1+ (Not Present)
[2020-12-21] MEDS: *HR* Heparin 5,000 UNIT/ML VIAL SQ SCH (06:31)
[2020-12-21] MEDS: Cholestyramine 4 GM POWD.PACK PO SCH ×2 (08:27→16:35)
[2020-12-21] MEDS: Lactobacillus 1 EACH CAP.SPRINK PO SCH ×2 (08:27→20:56)
[2020-12-21] MEDS: Multivit/Ca/Min/Fe/FA 1 TAB TABLET PO SCH (08:27)
[2020-12-21] MEDS: BUDESONIDE 3 MG PO SCH ×2 (08:28→11:44)
[2020-12-21] MEDS: Ondansetron 4 MG/2 ML VIAL IVP PRN (08:36)
[2020-12-21] MEDS: QUEtiapine Fumarate 100 MG TABLET PO SCH (20:56)
[2020-12-22 01:54] LABS: Hematocrit 28.6 % (35.3-44.9); Hemoglobin 8.8 g/dL (11.5-15.4)
[2020-12-22] MEDS: Acetaminophen 325 MG TABLET PO PRN ×2 (06:46→14:24)
[2020-12-22] MEDS: Multivit/Ca/Min/Fe/FA 1 TAB TABLET PO SCH (08:18)
[2020-12-22] MEDS: Lactobacillus 1 EACH CAP.SPRINK PO SCH ×2 (08:18→20:50)
[2020-12-22] MEDS: Cholestyramine 4 GM POWD.PACK PO SCH ×2 (08:18→16:58)
[2020-12-22] MEDS: BUDESONIDE 3 MG PO SCH (08:20)
[2020-12-22] MEDS ORDERED: SODIUM CHLORIDE/NAHCO3/KCL/PEG 4,000 ML SOLN.RECON PO ONE (17:00)
[2020-12-22] MEDS: Ondansetron 4 MG/2 ML VIAL IVP PRN (18:47)
[2020-12-22] MEDS: QUEtiapine Fumarate 100 MG TABLET PO SCH (20:50)
[2020-12-23] MEDS ORDERED: *HR* Metoprolol 5 MG/5 ML VIAL IVP ONE (02:28)
[2020-12-23] MEDS: Ondansetron 4 MG/2 ML VIAL IVP PRN (06:43)
[2020-12-23] MEDS: Cholestyramine 4 GM POWD.PACK PO SCH (11:23)
[2020-12-23] MEDS: Lactobacillus 1 EACH CAP.SPRINK PO SCH ×2 (11:23→19:36)
[2020-12-23] MEDS: BUDESONIDE 3 MG PO SCH (11:24)
[2020-12-23] MEDS: Multivit/Ca/Min/Fe/FA 1 TAB TABLET PO SCH (11:24)
[2020-12-23] MEDS: MethylPREDNISolone 40 MG/ML VIAL IVP SCH (15:38)
[2020-12-23] MEDS: Acetaminophen 325 MG TABLET PO PRN (16:23)
[2020-12-23] MEDS: QUEtiapine Fumarate 100 MG TABLET PO SCH (19:36)
[2020-12-23] MEDS: Nicotine 21 MG PATCH.TD24 TD SCH (19:36)
[2020-12-23] MEDS ORDERED: Lidocaine -MPF 2% 5 ML VIAL SQ ONE (23:41)
[2020-12-24] MEDS: MethylPREDNISolone 40 MG/ML VIAL IVP SCH ×3 (00:57→15:56)
[2020-12-24] MEDS: Acetaminophen 325 MG TABLET PO PRN ×3 (01:02→21:12)
[2020-12-24 01:17] LABS: Hematocrit 31.2 % (35.3-44.9); Hemoglobin 9.7 g/dL (11.5-15.4)
[2020-12-24] MEDS: Lactobacillus 1 EACH CAP.SPRINK PO SCH ×2 (09:17→21:12)
[2020-12-24] MEDS: Multivit/Ca/Min/Fe/FA 1 TAB TABLET PO SCH (09:17)
[2020-12-24] MEDS: Nicotine 21 MG PATCH.TD24 TD SCH (09:18)
[2020-12-24] MEDS: BUDESONIDE 3 MG PO SCH (09:22)
[2020-12-24] MEDS ORDERED: *HR* HYDROcodone/Acet 5/325 mg TABLET PO ONE (18:06)
[2020-12-24] MEDS: QUEtiapine Fumarate 100 MG TABLET PO SCH (21:12)
[2020-12-24] MEDS: Ipratropium/Albuterol Neb 3 ML IH PRN (21:59)
[2020-12-25] MEDS: predniSONE 20 MG TABLET PO SCH (07:30)
[2020-12-25] MEDS: Lactobacillus 1 EACH CAP.SPRINK PO SCH ×2 (07:30→20:18)
[2020-12-25] MEDS: Multivit/Ca/Min/Fe/FA 1 TAB TABLET PO SCH (07:30)
[2020-12-25] MEDS: Nicotine 21 MG PATCH.TD24 TD SCH (07:31)
[2020-12-25] MEDS: BUDESONIDE 3 MG PO SCH (07:31)
[2020-12-25 08:54] LABS: Hematocrit 28.4 % (35.3-44.9); Hemoglobin 8.6 g/dL (11.5-15.4)
[2020-12-25] MEDS: Acetaminophen 325 MG TABLET PO PRN (15:10)
[2020-12-25] MEDS ORDERED: hydrOXYzine pamoate 25 MG CAPSULE PO ONE (17:06)
[2020-12-25] MEDS: QUEtiapine Fumarate 100 MG TABLET PO SCH (20:17)
[2020-12-25] MEDS: Artificial Tears SOLN 15 ML BOTTLE BOTH EYES SCH (21:13)
[2020-12-26 05:46] LABS: Hematocrit 28.6 % (35.3-44.9); Hemoglobin 8.4 g/dL (11.5-15.4)
[2020-12-26] MEDS: Nicotine 21 MG PATCH.TD24 TD SCH (08:27)
[2020-12-26] MEDS: Lactobacillus 1 EACH CAP.SPRINK PO SCH ×2 (08:28→20:13)
[2020-12-26] MEDS: BUDESONIDE 3 MG PO SCH (08:28)
[2020-12-26] MEDS: predniSONE 20 MG TABLET PO SCH (08:29)
[2020-12-26] MEDS: Multivit/Ca/Min/Fe/FA 1 TAB TABLET PO SCH (08:29)
[2020-12-26] MEDS: Melatonin 3 MG TABLET PO PRN (20:13)
[2020-12-26] MEDS: QUEtiapine Fumarate 100 MG TABLET PO SCH (20:13)
[2020-12-26] MEDS: Artificial Tears SOLN 15 ML BOTTLE BOTH EYES SCH (20:14)
[2020-12-27 05:52] LABS: Hematocrit 28.8 % (35.3-44.9); Hemoglobin 8.5 g/dL (11.5-15.4)
[2020-12-27] MEDS: BUDESONIDE 3 MG PO SCH (08:23)
[2020-12-27] MEDS: Nicotine 21 MG PATCH.TD24 TD SCH (08:23)
[2020-12-27] MEDS: Multivit/Ca/Min/Fe/FA 1 TAB TABLET PO SCH (08:24)
[2020-12-27] MEDS: Lactobacillus 1 EACH CAP.SPRINK PO SCH ×2 (08:24→21:25)
[2020-12-27] MEDS: predniSONE 20 MG TABLET PO SCH (08:24)
[2020-12-27] MEDS: hydrOXYzine pamoate 25 MG CAPSULE PO PRN ×2 (13:31→21:25)
[2020-12-27] MEDS: Acetaminophen 325 MG TABLET PO PRN (21:25)
[2020-12-27] MEDS: QUEtiapine Fumarate 100 MG TABLET PO SCH (21:25)
[2020-12-27] MEDS: Artificial Tears SOLN 15 ML BOTTLE BOTH EYES SCH (21:27)
[2020-12-28] MEDS: Nicotine 21 MG PATCH.TD24 TD SCH (07:59)
[2020-12-28] MEDS: Multivit/Ca/Min/Fe/FA 1 TAB TABLET PO SCH (07:59)
[2020-12-28] MEDS: Lactobacillus 1 EACH CAP.SPRINK PO SCH ×2 (07:59→21:37)
[2020-12-28] MEDS: BUDESONIDE 3 MG PO SCH (08:00)
[2020-12-28] MEDS: predniSONE 20 MG TABLET PO SCH (08:00)
[2020-12-28] MEDS: Acetaminophen 325 MG TABLET PO PRN ×2 (11:46→21:44)
[2020-12-28] MEDS: hydrOXYzine pamoate 25 MG CAPSULE PO PRN ×2 (11:46→21:44)
[2020-12-28] MEDS: Ipratropium/Albuterol Neb 3 ML IH PRN (18:32)
[2020-12-28] MEDS: Artificial Tears SOLN 15 ML BOTTLE BOTH EYES SCH (21:37)
[2020-12-28] MEDS: QUEtiapine Fumarate 100 MG TABLET PO SCH (21:37)
[2020-12-29] MEDS: hydrOXYzine pamoate 25 MG CAPSULE PO PRN (06:05)
[2020-12-29 06:47] LABS: Hematocrit 31.1 % (35.3-44.9); Hemoglobin 9.6 g/dL (11.5-15.4)
[2020-12-29] MEDS: Nicotine 21 MG PATCH.TD24 TD SCH (08:02)
[2020-12-29] MEDS: Lactobacillus 1 EACH CAP.SPRINK PO SCH (08:02)
[2020-12-29] MEDS: Multivit/Ca/Min/Fe/FA 1 TAB TABLET PO SCH (08:02)
[2020-12-29] MEDS: predniSONE 20 MG TABLET PO SCH (08:02)
[2020-12-29] MEDS: BUDESONIDE 3 MG PO SCH (08:03)
[2020-12-29 15:59] VITALS: BP 137/96; PULSE 116; TEMP 97.9; O2SAT 98
== END 2020-12-29 20:00 | disposition home or self-care (01) | DRG 245 ==
LOC: 3BNU 17:18 → EMEROOARM 17:18 → SUATTDRO 23:40 → 3BNU 12-20 01:04
PROVIDERS: ADMIT Internal Medicine; ATTEND Nurse Practitioner
PROC: ENDOCBX (2020-12-23 14:25)